=== PATIENT | female | born 1990 | race Caucasian/White ===

== ENCOUNTER 2016-03-25 15:06 | Emergency (ER) | payer BC, MEDICAID ==
--- NOTE | 2016-03-25 15:33 | ED ---
Psychiatric Complaint - HPI Summary HPI Summary: CC: Depression HPI: 25 YO FEMALE c/o depression. She wishes to have a Mental Health Evaluation. Patient not forth coming of further information at this time. - History Of Current Complaint Chief Complaint: EDMentalHealth Time Seen by Provider: 03/25/16 15:16 Hx Obtained From: Patient Hx From Patient Unobtainable Due To: Other - Patient not talkative Hx Last Menstrual Period: MIDDLE Timing: Constant Character: Depressed Associated Signs And Symptoms: Positive: Social Withdrawal - Allergies/Home Medications Allergies/Adverse Reactions: Allergies Allergy/AdvReac Type Severity Reaction Status Date / Time Risperidone [From Risperdal] Allergy Severe Anaphylatic Verified 12/19/11 16:30 Shock Clarithromycin [From Biaxin] Allergy Intermediate GI Upset Verified 12/19/11 16: 30 PMH/Surg Hx/FS Hx/Imm Hx - Surgical History Surgery Procedure, Year, and Place: T&A, EAR TUBES Infectious Disease History: Denies: Traveled Outside the [place] in Last 30 Days - Social History Substance Use Type: Reports: None Review of Systems Negative: Fever Negative: Epistaxis Negative: Chest Pain Negative: Vomiting Negative: Decreased ROM Negative: Weakness Positive: Depressed All Other Systems Reviewed And Are Negative: Yes Physical Exam Triage Information Reviewed: Yes Appearance: Positive: Well-Appearing Skin: Positive: Warm, Skin Color Reflects Adequate Perfusion Eyes: Positive: EOMI, LORI ENT: Positive: Normal ENT inspection Respiratory/Lung Sounds: Positive: Clear to Auscultation Cardiovascular: Positive: Normal, RRR Musculoskeletal: Positive: Normal Neurological: Positive: Sensory/Motor Intact, CN Intact II-III Psychiatric: Positive: Depressed AVPU Assessment: Alert Course/Dx - Course Assessment/Plan: MHE pending at shift change. - Differential Dx/Clinical Impression Provider Diagnosis: Mental health problem Discharge - Discharge Plan Condition: Stable Disposition: PSYCHIATRIC FACILITY-[facility]
[2016-03-25 16:19] LABS: Hematocrit 40 % (35-47); Hemoglobin 13.6 g/dl (12.0-16.0); Mean Corpuscular HGB Conc 34 g/dl (31-36); Mean Corpuscular Hemoglobin 30 pg (27-31); Mean Corpuscular Volume 89 fL (80-97); Mean Platelet Volume 9 um3 (7.4-10.4); Red Blood Count 4.48 10^6/ul (4.0-5.4); Red Cell Distribution Width 13 % (10.5-15)
[2016-03-25 16:47] LABS: ALT 19 U/L (7-52); AST 14 U/L (13-39); Acetaminophen < 15 mcg/mL; Albumin 4.1 g/dL (3.2-5.2); Alcohol < 10 mg/dL (<10); Alkaline Phosphatase 74 U/L (34-104); Anion Gap 8 mmol/L (2-11); BUN/Creatinine Ratio 17.6 (8-20); Blood Urea Nitrogen 15 mg/dL (6-24); CO2 Carbon Dioxide 20 mmol/L (22-32); Calcium 9.4 mg/dL (8.6-10.3); Chloride 110 mmol/L (101-111); EGFR African American 106.6 (>60); EGFR Non-African American 82.9 (>60); Globulin 2.8 g/dL (2-4); Glucose 90 mg/dL (70-100); Potassium 3.5 mmol/L (3.5-5.0); Salicylate < 2.50 mg/dL (<30); Sodium 138 mmol/L (133-145); Total Protein 6.9 g/dL (6.4-8.9)
[2016-03-25 16:48] VITALS: BP 131/84
== END 2016-03-25 17:58 ==
LOC: ED 15:06
DX: F32.9 Major depressive disorder, single episode, unspecified (principal)
CPT/HCPCS: 36415; 80053; 80175; 80320; 80329; 84443; 84702; 85025; 99283; G0480

== ENCOUNTER 2017-08-28 17:45 | Emergency (ER) | payer BC, MEDICARE, MEDICAID ==
[2017-08-28 18:25] LABS: Hematocrit 39 % (35-47); Hemoglobin 13.4 g/dl (12.0-16.0); Mean Corpuscular HGB Conc 34 g/dl (31-36); Mean Corpuscular Hemoglobin 31 pg (27-31); Mean Corpuscular Volume 91 fL (80-97); Mean Platelet Volume 8.4 um3 (7.4-10.4); Platelet Count 287 10^3/ul (150-450); Red Blood Count 4.26 10^6/ul (4.00-5.40); Red Cell Distribution Width 13 % (10.5-15); White Blood Count 13.6 10^3/ul (3.5-10.8)
[2017-08-28 18:33] LABS: Urine Appearance Cloudy; Urine Blood 3+ (Negative); Urine Color Yellow; Urine Ketones Negative (Negative); Urine Protein Negative (Negative); Urine Specific Gravity 1.011 (1.010-1.030); Urine Urobilinogen Negative (Negative)
[2017-08-28 18:44] LABS: EGFR Non-African American 86.2 (>60)
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
[2017-08-28 18:57] LABS: ABS Basophils 0 10^3/ul (0-0.2); ABS Eosinophils 0.3 10^3/ul (0-0.6); ABS Lymphocytes 3.1 10^3/ul (1.0-4.8); ABS Neutrophils 9.2 10^3/ul (1.5-7.7); ABS Nucleated RBC 0 10^3/ul; Eosinophil % 2.2 % (0-6); Lymphocyte % 22.8 % (25-47); Nucleated Red Blood Cells % 0.1
[2017-08-28] MEDS ORDERED: QUEtiapine TAB* 25 MG PO ONE (23:04)
[2017-08-28] MEDS ORDERED: Topiramate TAB(*) 100 MG PO ONE (23:05)
[2017-08-28] MEDS ORDERED: CMCS:ClomiPRAMINE (NF) 25 MG CAP PO SCH (23:30)
--- NOTE | 2017-08-29 07:43 | PN ---
ED Flex Patient Progress Note Date of Service: 08/28/17 Subjective: This is a 27 year-old F who is pending admission to [facility] / transfer to another psychiatric facility / discharge to home / or being observed secondary agitated behavior. Pt. resides at the [facility]. Pt. examined around 0730 in F2. She is sleeping comfortably. Objective: Vitals: Most recent vital signs documented below. General NAD. Laboratory: Current laboratory results documented below. Assessment: Pending MHE. Plan: Pending psychiatric or medical consultation to observe / transfer / admit / discharge will follow up daily . Vital Signs Temp Pulse Resp BP Pulse Ox 98.2 F 106 16 138/83 98 08/28/17 17:46 08/28/17 17:46 08/28/17 17:46 08/28/17 17:46 08/28/17 17:46 Lab Results - Entire Visit 08/28/17 08/28/17 08/28/17 18:20 18:19 18:19 WBC 13.6 H RBC 4.26 Hgb 13.4 Hct 39 MCV 91 MCH 31 MCHC 34 RDW 13 Plt Count 287 MPV 8.4 Neut % (Auto) 67.5 Lymph % (Auto) 22.8 L [place] % (Auto) 7.2 H Eos % (Auto) 2.2 Baso % (Auto) 0.3 Absolute Neuts (auto) 9.2 H Absolute Lymphs (auto) 3.1 Absolute Monos (auto) 1.0 H Absolute Eos (auto) 0.3 Absolute Basos (auto) 0 Absolute Nucleated RBC 0 Nucleated RBC % 0.1 Sodium 139 Potassium 3.8 Chloride 109 Carbon Dioxide 21 L Anion Gap 9 BUN 10 Creatinine 0.81 Est GFR ( Amer) 104.2 Est GFR (Non-Af Amer) 86.2 BUN/Creatinine Ratio 12.3 Glucose 96 Calcium 9.1 Total Bilirubin 0.20 AST 14 ALT 16 Alkaline Phosphatase 90 Total Protein 7.0 Albumin 3.8 Globulin 3.2 Albumin/Globulin Ratio 1.2 TSH 4.14 Beta HCG, Quant < 0.60 Urine Color Urine Appearance Urine pH Ur Specific [place] Urine Protein Urine Ketones Urine Blood Urine Nitrate Urine Bilirubin Urine Urobilinogen Ur Leukocyte Esterase Urine WBC (Auto) Urine RBC (Auto) Ur Squamous Epith Cells Urine Bacteria Urine Glucose Salicylates < 2.50 Urine Opiates Screen None detected Acetaminophen < 15 Ur Barbiturates Screen None detected Ur Phencyclidine Scrn None detected Ur Amphetamines Screen None detected U Benzodiazepines Scrn None detected Urine Cocaine Screen None detected U Cannabinoids Screen None detected Serum Alcohol < 10 08/28/17 18:16 WBC RBC Hgb Hct MCV MCH MCHC RDW Plt Count MPV Neut % (Auto) Lymph % (Auto) [place] % (Auto) Eos % (Auto) Baso % (Auto) Absolute Neuts (auto) Absolute Lymphs (auto) Absolute Monos (auto) Absolute Eos (auto) Absolute Basos (auto) Absolute Nucleated RBC Nucleated RBC % Sodium Potassium Chloride Carbon Dioxide Anion Gap BUN Creatinine Est GFR ( Amer) Est GFR (Non-Af Amer) BUN/Creatinine Ratio Glucose Calcium Total Bilirubin AST ALT Alkaline Phosphatase Total Protein Albumin Globulin Albumin/Globulin Ratio TSH Beta HCG, Quant Urine Color Yellow Urine Appearance Cloudy Urine pH 6.0 Ur Specific [place] 1.011 Urine Protein Negative Urine Ketones Negative Urine Blood 3+ A Urine Nitrate Negative Urine Bilirubin Negative Urine Urobilinogen Negative Ur Leukocyte Esterase Trace A Urine WBC (Auto) 3+(>20/hpf) A Urine RBC (Auto) 2+(6-10/hpf) A Ur Squamous Epith Cells Present A Urine Bacteria 3+ A Urine Glucose Negative Salicylates Urine Opiates Screen Acetaminophen Ur Barbiturates Screen Ur Phencyclidine Scrn Ur Amphetamines Screen U Benzodiazepines Scrn Urine Cocaine Screen U Cannabinoids Screen Serum Alcohol
[2017-08-29] MEDS ORDERED: PTO: Cariprazine 4.5 MG CAPSULE PO SCH (09:00)
[2017-08-29] MEDS ORDERED: lamoTRIgine TAB(*) 100 MG PO ONE (10:57)
[2017-08-29] MEDS ORDERED: Clomipramine (NF) 50 MG CAP PO ONE (10:57)
[2017-08-29] MEDS ORDERED: QUEtiapine TAB* 25 MG PO ONE (10:57)
[2017-08-29] MEDS ORDERED: CMC:ClomiPRAMINE (NF) 25 MG CAP PO ONE (13:00)
[2017-08-29] MEDS ORDERED: lamoTRIgine TAB(*) 25 MG PO ONE (13:00)
[2017-08-29 14:50] VITALS: BP 154/110
--- NOTE | 2017-08-29 16:44 | PN ---
ED Flex Patient Progress Note Date of Service: 08/29/17 Subjective: ED Flex Day #1 for this 27 y.o. developmentally delayed female resident at the [facility] who presented with agitation and threats to self harm. Staff indicate that she is in behavioral control and pending d/c back to [facility]. Objective: female in scrubs; talking to self but calm and cooperative; denies SI Assessment: Developmental Delay with unspecified Impulse Control DO Plan: D/C to [facility]. F/U with outpatient services. Vital Signs Temp Pulse Resp BP Pulse Ox 98.5 F 94 17 154/110 98 08/29/17 15:20 08/29/17 15:20 08/29/17 15:20 08/29/17 15:20 08/29/17 15:20 Lab Results - Entire Visit 08/28/17 08/28/17 08/28/17 18:20 18:19 18:19 WBC 13.6 H RBC 4.26 Hgb 13.4 Hct 39 MCV 91 MCH 31 MCHC 34 RDW 13 Plt Count 287 MPV 8.4 Neut % (Auto) 67.5 Lymph % (Auto) 22.8 L [place] % (Auto) 7.2 H Eos % (Auto) 2.2 Baso % (Auto) 0.3 Absolute Neuts (auto) 9.2 H Absolute Lymphs (auto) 3.1 Absolute Monos (auto) 1.0 H Absolute Eos (auto) 0.3 Absolute Basos (auto) 0 Absolute Nucleated RBC 0 Nucleated RBC % 0.1 Sodium 139 Potassium 3.8 Chloride 109 Carbon Dioxide 21 L Anion Gap 9 BUN 10 Creatinine 0.81 Est GFR ( Amer) 104.2 Est GFR (Non-Af Amer) 86.2 BUN/Creatinine Ratio 12.3 Glucose 96 Calcium 9.1 Total Bilirubin 0.20 AST 14 ALT 16 Alkaline Phosphatase 90 Total Protein 7.0 Albumin 3.8 Globulin 3.2 Albumin/Globulin Ratio 1.2 TSH 4.14 Beta HCG, Quant < 0.60 Urine Color Urine Appearance Urine pH Ur Specific [place] Urine Protein Urine Ketones Urine Blood Urine Nitrate Urine Bilirubin Urine Urobilinogen Ur Leukocyte Esterase Urine WBC (Auto) Urine RBC (Auto) Ur Squamous Epith Cells Urine Bacteria Urine Glucose Salicylates < 2.50 Urine Opiates Screen None detected Acetaminophen < 15 Ur Barbiturates Screen None detected Ur Phencyclidine Scrn None detected Ur Amphetamines Screen None detected U Benzodiazepines Scrn None detected Urine Cocaine Screen None detected U Cannabinoids Screen None detected Serum Alcohol < 10 08/28/17 18:16 WBC RBC Hgb Hct MCV MCH MCHC RDW Plt Count MPV Neut % (Auto) Lymph % (Auto) [place] % (Auto) Eos % (Auto) Baso % (Auto) Absolute Neuts (auto) Absolute Lymphs (auto) Absolute Monos (auto) Absolute Eos (auto) Absolute Basos (auto) Absolute Nucleated RBC Nucleated RBC % Sodium Potassium Chloride Carbon Dioxide Anion Gap BUN Creatinine Est GFR ( Amer) Est GFR (Non-Af Amer) BUN/Creatinine Ratio Glucose Calcium Total Bilirubin AST ALT Alkaline Phosphatase Total Protein Albumin Globulin Albumin/Globulin Ratio TSH Beta HCG, Quant Urine Color Yellow Urine Appearance Cloudy Urine pH 6.0 Ur Specific [place] 1.011 Urine Protein Negative Urine Ketones Negative Urine Blood 3+ A Urine Nitrate Negative Urine Bilirubin Negative Urine Urobilinogen Negative Ur Leukocyte Esterase Trace A Urine WBC (Auto) 3+(>20/hpf) A Urine RBC (Auto) 2+(6-10/hpf) A Ur Squamous Epith Cells Present A Urine Bacteria 3+ A Urine Glucose Negative Salicylates Urine Opiates Screen Acetaminophen Ur Barbiturates Screen Ur Phencyclidine Scrn Ur Amphetamines Screen U Benzodiazepines Scrn Urine Cocaine Screen U Cannabinoids Screen Serum Alcohol
--- NOTE | 2017-08-30 03:42 | ED ---
Dat Lizama Tariq, scribed for Laura Dewey MD on 08/29/17 at 0700 . Progress - Consult/PCP Time Called: 17:46 Course/Dx - Course Course Of Treatment: DISCUSSED URINE RESULTS WITH THE PATIENT. SHE DENIES UTI SX THEREFORE, WILL SEND URINE TO CULTURE AND NOT TREAT WITH ABX AT THIS TIME. DISPOSITION AND MHE PENDING AT SHIFT CHANGE. - Diagnoses Provider Diagnoses: Mental health problem Discharge - Sign-Out/Discharge Documenting (check all that apply): Discharge/Admit/Transfer Signing out patient TO: Yazan Rand Receiving patient FROM: Laura Dewey - Discharge Plan Condition: Stable Disposition: HOME Referrals: Amy BLACK,Moreno Bullock [Primary Care Provider] - - Billing Disposition and Condition Condition: STABLE Disposition: Home The documentation as recorded by the Dat page Tariq accurately reflects the service I personally performed and the decisions made by Maco shah Abdul, MD.
== END 2017-08-29 15:20 | disposition home or self-care (01) ==
LOC: ED 17:45
DX: F99 Mental disorder, not otherwise specified (principal); Z88.8 Allergy status to other drugs, medicaments and biological substances
CPT/HCPCS: 36415; 80053; 80307; 80320; 80329; 81003; 81015; 84443; 84702; 85025; 87086; 99284; A9270-GY; G0480

== ENCOUNTER 2017-09-04 09:05 | Emergency (ER) | payer BC, MEDICARE, MEDICAID ==
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
[2017-09-04 11:46] VITALS: BP 0/0
== END 2017-09-04 11:45 | disposition home or self-care (01) ==
LOC: ED 09:05
DX: F43.20 Adjustment disorder, unspecified (principal); F84.0 Autistic disorder
CPT/HCPCS: 99284

== ENCOUNTER 2017-10-18 20:23 | Emergency (ER) | payer BC, MEDICARE, MEDICAID ==
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
[2017-10-18 20:47] LABS: Hematocrit 40 % (35-47); Hemoglobin 13.6 g/dl (12.0-16.0); Mean Corpuscular HGB Conc 34 g/dl (31-36); Mean Corpuscular Hemoglobin 31 pg (27-31); Mean Corpuscular Volume 91 fL (80-97); Mean Platelet Volume 8.7 um3 (7.4-10.4); Platelet Count 301 10^3/ul (150-450); Red Cell Distribution Width 13 % (10.5-15)
[2017-10-18 21:03] LABS: ABS Basophils 0.1 10^3/ul (0-0.2); ABS Eosinophils 0.3 10^3/ul (0-0.6); ABS Lymphocytes 3.6 10^3/ul (1.0-4.8); ABS Neutrophils 8.1 10^3/ul (1.5-7.7)
[2017-10-18 21:04] LABS: EGFR Non-African American 78.3 (>60)
[2017-10-18 21:08] LABS: ABS Basophils 0.1 10^3/ul (0-0.2); Monocytes % 7 % (0-7)
[2017-10-18 21:35] LABS: Urine Appearance Cloudy; Urine Blood 3+ (Negative); Urine Color Yellow; Urine Ketones Negative (Negative); Urine Protein Negative (Negative); Urine Red Blood Cell Trace(0-2/hpf) (Absent); Urine Specific Gravity 1.011 (1.010-1.030); Urine Urobilinogen Negative (Negative); Urine White Blood Cell 3+(>20/hpf) (Absent)
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
[2017-10-19 00:31] VITALS: BP 0/0
== END 2017-10-19 00:29 | disposition home or self-care (01) ==
LOC: ED 20:23
DX: F39 Unspecified mood [affective] disorder (principal); F63.9 Impulse disorder, unspecified; Z88.1 Allergy status to other antibiotic agents; Z88.8 Allergy status to other drugs, medicaments and biological substances
CPT/HCPCS: 36415; 80053; 80307; 80320; 80329; 81003; 81015; 84443; 84702; 85025; 87086; 99284; G0480

== ENCOUNTER 2018-04-04 14:44 | Emergency (ER) | payer BC, MEDICARE, MEDICAID ==
[2018-04-04] MEDS ORDERED: NS 0.9% 1000 ML** 1,000 ML IV ONE ×2 (14:49)
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
[2018-04-04 16:20] VITALS: BP 152/78
== END 2018-04-04 16:21 | disposition home or self-care (01) ==
LOC: ED 14:44
DX: F84.0 Autistic disorder (principal); F43.20 Adjustment disorder, unspecified; R45.851 Suicidal ideations
CPT/HCPCS: 99282